=== PATIENT | female | born 1940 | race Caucasian/White ===

== ENCOUNTER → 2019-07-13 | Outpatient (CLI) | payer MEDICARE ==
[~2019-07-13] MED LIST: BUTA-256 PO; LEVO88TA7 PO; MELO-106 PO; METO5 PO; PRAV40TA3 PO
== END | disposition home or self-care (01) ==
LOC: RAH 09:39
PROVIDERS: ATTEND Internal Medicine
DX: R91.8 Other nonspecific abnormal finding of lung field (principal)
CPT/HCPCS: 71250